=== PATIENT | female | born 1970 | race Asian ===

== ENCOUNTER → 2021-06-11 11:41 | Outpatient (CLI) | payer OTHER, SELFPAY ==
--- NOTE | ~2021-06-11 | US_ITS ---
EXAMINATION: US thyroid EXAM DATE: 06/11/2021 12:00 INDICATION: R22.1 - Localized swelling, mass and lump, neck. TECHNIQUE: Multiple grayscale and Doppler images of the thyroid were obtained (by a technologist who performed the scan) and subsequently reviewed. Individual nodules and recommendations may be reporte d in accordance with TI-RADS system as designated by the 2017 ACR White Paper TI-RADS committee. The re is no prior study for comparison. FINDINGS: The right thyroid lobe measures 4.1 x 1.4 x 1.1 cm, the left measuring 4.4 x 1.0 x 1.4. There is mild ly heterogeneous thyroid echogenicity with expected amount of vascularity. There is a nodule in the left thyroid lobe midpole measuring 0.8 x 0.6 x 0.7 cm , predominantly solid (2 points), hypoechoic (2 points), wider than tall, smooth well defined margin, without echogenic fo ci, category TR4 for this nodule. This category nodule is typically considered for follow-up if they are 1 cm in size, which this is not. IMPRESSION: Normal-sized thyroid with small left thyroid lobe nodule, not likely clinically significa nt. Return to clinical follow-up and if additional palpable abnormality develops a repeat ultrasoun d can be obtained. Reviewed, dictated and finalized at location D. IMPRESSION: Normal-sized thyroid with small left thyroid lobe nodule, not likel y clinically significant. Return to clinical follow-up and if additional palp able abnormality develops a repeat ultrasound can be obtained.
== END ==
PROVIDERS: PCP Family Medicine; Visit Provider Nurse Practitioner Family
DX: R22.1 Localized swelling, mass and lump, neck (principal)
CPT/HCPCS: 76536

== ENCOUNTER 2023-06-02 08:20 | Outpatient (CLI) | payer OTHER, SELFPAY ==
--- NOTE | 2023-06-22 17:43 | WPDSLEEPSTUD ---
Sleep Study Date of Study: 06/02/23 Ordering Provider: Rg Jamison MD Interpreting Physician: Yin Ballard MD Sleep Study Type: Polysomnogram Height: 1.63 m Weight: 62.596 kg Body Mass Index: 23.6 Neck Circumference (inches): 11 [place]: 3 Reason for Sleep Study Waking at night with her heart racing Sleep History Cholo Bautista is a 52-year-old female with narrow upper airway anatomy and episodes of waking at night with her heart racing. Her dentist noticed her small airway, and recommended a sleep study. She does not awaken at night feeling short of breath. She has no episodes of waking at night with heartburn, belching or coughing. She does not snore. Others do not tell her that she snores. She does not have difficulty sleeping when she has a cold. She does not gasp for breath at night. She rarely has breathing problems at night reported to her by others. She frequently notices her heart pounding or beating irregularly night. She does not ever fall asleep during the day, does not fall asleep involuntarily or while driving. She does not have loss of muscle tone with strong emotion. 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 She does not feel paralyzed on waking or falling asleep. She does not have vivid dreamlike scenes upon awakening or falling asleep. She is not afraid to go to sleep. She does not have nightmares. She rarely remembers her dreams. She rarely has racing thoughts. She rarely feels sad, depressed or anxious. She rarely has muscular tension. She rarely notices parts of her body jerking. She rarely kicks at night. She rarely has crawling or aching feelings in her legs. She rarely has any kind of leg pain at night. She rarely has morning jaw pain. She occasionally grinds her teeth at night. She is not bothered by pain during the day. She is not awakened by pain at night. She does not wake up feeling stiff in the morning with sore achy muscles or pain in the neck and spine. Normal bedtime is 10:30 p.m. falling asleep within 30 minutes, typically waking 2-3 times at night for unclear reasons. She tries to reposition and return to sleep. Sometimes while awake at night, she reads on her telephone. She may stay awake for 15-20 minutes at night. She wakes the morning at 6:30 a.m.. She keeps the same schedule on weekends. She does not take naps in the afternoon or evening. A short nap is not refreshing. She feels refreshed on waking in the morning. She is not drowsy when she wakes. She reports a 5 lb wt loss in the the last year. Habits: No tobacco. Caffeine- 1-2 cups per days. no alcohol or recreational substances. [facility] Past Medical History Medical History BMI 23.0-23.9, adult BMI 25.0-25.9,adult Iron deficiency anemia, unspecified Screen for colon cancer Screening mammogram for high-risk patient Family History Family History Father Hypertension Mother Arthritis Hypertension Sibling Arthritis Social History Social History Smoking status: Never smoker Second hand tobacco smoke exposure: No Alcohol intake: current Substance use: never Substance use type: does not use Lack of Transportation: No Lack of Food: Never True Current Housing: I Have Housing Concerned About Future Housing: No Difficulty Paying Gas/Electric Bills: No Difficulty Paying for Meds: No Currently Unemployed: No Education: Master's Degree or Higher Difficulty w/ Childcare or Family Care: No Living arrangements: alone Occupation/Education: occupation 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
[2023-06-22 18:55] VITALS: BMI 23.6
== END 2023-06-03 07:40 | disposition home or self-care (01) ==
LOC: ANHCSM 08:21
PROVIDERS: PCP Family Medicine; Visit Provider Family Medicine
DX: G47.10 Hypersomnia, unspecified (principal); G47.00 Insomnia, unspecified
CPT/HCPCS: 95810

== ENCOUNTER 2023-07-29 01:08 | Day surgery (SDC) | payer OTHER, SELFPAY ==
[2023-07-25 09:54] VITALS: BMI 23.8
--- NOTE | 2023-07-28 15:53 | PM.HPGS ---
History of Present Illness History of Present Illness Consent: Risks, benefits, and alternatives have been discussed and questions answered. Patient agrees to proceed with procedure. Chief complaint: neoplasm screening Narrative: Cholo Bautista is a 52 year old female Referred for colon cancer screening. Review of Systems Review of Systems: All systems reviewed & are unremarkable except as noted in HPI and below PMFSH Past Medical History Medical History BMI 23.0-23.9, adult BMI 25.0-25.9,adult Iron deficiency anemia, unspecified Screen for colon cancer Screening mammogram for high-risk patient Family History Family History Father Hypertension Mother Arthritis Hypertension Sibling Arthritis Social History Social History Smoking status: Never smoker Second hand tobacco smoke exposure: No Alcohol intake: current Substance use: never Substance use type: does not use Lack of Transportation: No Lack of Food: Never True Current Housing: I Have Housing Concerned About Future Housing: No Difficulty Paying Gas/Electric Bills: No Difficulty Paying for Meds: No Currently Unemployed: No Education: Master's Degree or Higher Difficulty w/ Childcare or Family Care: No Living arrangements: alone Occupation/Education: occupation 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 Gender identity (if verbalized by the patient): Female Spiritual care concerns: No Meds Home Medications and Allergies Home Medications Medication Instructions Recorded Confirmed Type cholecalciferol (vitamin D3) 1,250 1,250 mcg PO WEEKLY #8 caps 04/09/21 07/25/23 Rx mcg (50,000 unit) capsule triamcinolone acetonide 0.1 % 1 applic topical BID #30 grams 01/12/22 07/25/23 Rx topical cream cyanocobalamin (vitamin B-12) 1,000 mcg PO MONTHLY 04/05/23 07/25/23 History 1,000 mcg capsule Allergies Allergy/AdvReac Type Severity Reaction Status Date / Time No Known Allergies Allergy Verified 07/29/23 09:06 Exam Const: General: alert Orientation/consciousness: patient oriented x3 Resp: Auscultation: clear to auscultation bilaterally Cardio: Rhythm: regular rhythm GI: GI Palp: Yes Soft to palpation and No Tenderness to palpation present (GI) Neuro: General: patient oriented x3 Assessment and Plan Assessment and plan (1) Screen for colon cancer: Code(s): Z12.11 - Encounter for screening for malignant neoplasm of colon Status: Acute Assessment and Plan: Colonoscopy with possible biopsy or polypectomy or cautery or injection of substances.
--- NOTE | 2023-07-29 08:02 | WPDANESEPPF ---
Anes - Initial Pre Proc Eval Procedure: Operation Date: 07/29/23 10:30 Proposed Procedures p Screening Colonoscopy - Aram Valdes MD Date/Time: 07/29/23 08:02 Surgeon: Aram Valdes MD Pre Op Diagnosis: neoplasm screening Patient Data Age: 52 Gender: F Height: 1.63 m Weight: 63 kg Allergies Allergy/AdvReac Type Severity Reaction Status Date / Time No Known Allergies Allergy Verified 07/29/23 09:06 Home Medications Medication Instructions Recorded Confirmed Type cholecalciferol (vitamin D3) 1,250 1,250 mcg PO WEEKLY #8 caps 04/09/21 07/25/23 Rx mcg (50,000 unit) capsule triamcinolone acetonide 0.1 % 1 applic topical BID #30 grams 01/12/22 07/25/23 Rx topical cream cyanocobalamin (vitamin B-12) 1,000 mcg PO MONTHLY 04/05/23 07/25/23 History 1,000 mcg capsule Patient hx anesthesia problems: none Family hx anesthesia problems: none Results Review: All pre-operative results and documents have been reviewed as part of the pre-operative evaluation. [facility] Past Medical History Medical History BMI 23.0-23.9, adult BMI 25.0-25.9,adult Iron deficiency anemia, unspecified Screen for colon cancer Screening mammogram for high-risk patient Family History Family History Father Hypertension Mother Arthritis Hypertension Sibling Arthritis Social History Social History Smoking status: Never smoker Second hand tobacco smoke exposure: No Alcohol intake: current Substance use: never Substance use type: does not use Lack of Transportation: No Lack of Food: Never True Current Housing: I Have Housing Concerned About Future Housing: No Difficulty Paying Gas/Electric Bills: No Difficulty Paying for Meds: No Currently Unemployed: No Education: Master's Degree or Higher Difficulty w/ Childcare or Family Care: No Living arrangements: alone Occupation/Education: occupation 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 Informed Consent: The patient's anesthetic plan and its attendant risks and benefits were discussed with the patient/family/POA. Questions were solicited and answers provided to the satisfaction of the patient/family/POA.
[2023-07-29 09:07] VITALS: BP 117/82; PULSE 75; RESP 20; TEMP 36.3; O2SAT 100
[2023-07-29] MEDS: LACTATED RINGERS 1,000 ML 150 ML IV CONT (09:28)
[2023-07-29 10:43] VITALS: BP 92/61; PULSE 72; RESP 15; O2SAT 100
[2023-07-29 10:53] VITALS: BP 116/69; PULSE 62; RESP 16; O2SAT 100
[2023-07-29 11:03] VITALS: BP 136/88; PULSE 68; RESP 16; O2SAT 100
--- NOTE | 2023-07-29 11:22 | SUR.PHASEII ---
Delay in discharge due to waiting for trencher driver to arrive.
== END 2023-07-29 11:40 | disposition home or self-care (01) ==
PROVIDERS: PCP Family Medicine; Visit Provider Internal Medicine Gastroenterology
PROC: 0DJD8ZZ Inspection of Lower Intestinal Tract, Via Natural or Artificial Opening Endoscopic (ICD-10-PCS; CPT 45378; principal; 2023-07-29 10:30)
DX: Z12.11 Encounter for screening for malignant neoplasm of colon (principal)
CPT/HCPCS: 45378; J2704; J7120

== ENCOUNTER 2024-11-05 14:53 | Outpatient (CLI) | payer OTHER, SELFPAY ==
[2024-11-05 15:16] LABS: Basophils Percent Auto 0.4 % (0.2-1.2); Eosinophils Absolute Auto 0.2 K/mm3 (0-0.3); Eosinophils Percent Auto 2.2 % (0-4.4); Hematocrit 43.9 % (37.0-47.0); Immature Granulocyte Absolute 0.03 K/mm3 (0.00-0.031); Immature Granulocyte Percent A 0.4 % (0-0.5); Lymphocytes Percent Auto 33.4 % (18.3-44.2); Mean Corpuscular HGB Conc 31.9 g/dl (32-36); Mean Corpuscular Volume 81.6 fl (80-100); Mean Platelet Volume 9.7 fl (7.4-10.4); Monocytes Absolute Auto 0.7 K/mm3 (0.1-0.6); Monocytes Percent Auto 9.3 % (2.6-8.5); Neutrophils Absolute Auto 3.9 K/mm3 (1.3-6.7); Neutrophils Percent Auto 54.3 % (45.5-73.1); Platelet Count Result 332 k/mm3 (150-375); Red Blood Count 5.38 M/mm3 (4.2-5.4); Red Cell Distribution Width 12.2 % (11.5-14.5); White Blood Count 7.2 K/mm3 (4.5-10.0)
[2024-11-05 16:36] LABS: Alanine Aminotransferase 21 U/L (6-35); Albumin Level 4.2 g/dL (3.5-5.1); Alkaline Phosphatase 99 U/L (38-126); Anion Gap 3 mmol/L (4-12); Aspartate Amino Transferase 57 U/L (14-36); Bilirubin,Total 0.5 mg/dL (0.2-1.3); Blood Urea Nitrogen 15 mg/dL (7-17); Calcium 9.3 mg/dL (8.4-10.2); Carbon Dioxide 28 mmol/L (22-30); Chloride 110 mmol/L (98-107); Estimated Glomerular Filt Rate > 60; Glucose 99 mg/dL (65-110); Potassium 4.2 mmol/L (3.4-5.0); Sodium 141 mmol/L (137-145)
[2024-11-05 17:08] LABS: Iron 89 ug/dL (37-170); Percent Iron Saturation 23 % (20-50)
[2024-11-05 17:41] LABS: Folic Acid 14.3 ng/mL (2.76->20); Vitamin B12 > 1000.0 pg/mL (239-931)
[2024-11-06 20:13] LABS: Hematocrit 43.3 % (35.0-45.0); Hemoglobin 13.8 g/dL (11.7-15.5); MCH 25.9 pg (27.0-33.0); MCV 81.2 fL (80.0-100.0); RDW 12.4 % (11.0-15.0); Red Blood Cell Count 5.33 Million/uL (3.80-5.10)
== END 2024-11-05 14:54 | disposition home or self-care (01) ==
LOC: ANHLAB 14:55
PROVIDERS: PCP Family Medicine; Visit Provider Internal Medicine Hematology & Oncology
DX: R71.8 Other abnormality of red blood cells (principal)
CPT/HCPCS: 36415; 80053; 82607; 82728; 82746; 83021; 83540; 83550; 85025